=== PATIENT | female | born 1950 | race Caucasian/White ===

== ENCOUNTER 2024-02-26 17:03 | Emergency (ER) | payer MEDICARE ==
[~2024-02-26] VITALS: Ht 162.6 cm; Wt 63.6 kg
[2024-02-26] MEDS ORDERED: NORCO 325 MG-51 TA1 PO (17:52)
[2024-02-26] MEDS ORDERED: CEPHALEXIN500 M1 PO (17:52)
[2024-02-26] MEDS ORDERED: Home HYDROcodone/Acetaminophen 5/325 MG #4 TABS/PACK PO ONE (18:00)
[2024-02-26] MEDS ORDERED: Home Cephalexin 500 MG #2 CAP/PACK PO ONE (18:00)
[2024-02-26 18:04] VITALS: BP 144/91
== END 2024-02-26 18:05 | disposition home or self-care (01) ==
LOC: ED 17:03
DX: S90.212A Contusion of left great toe with damage to nail, initial encounter (principal); W20.8XXA Other cause of strike by thrown, projected or falling object, initial encounter

== ENCOUNTER → 2024-09-13 | Outpatient (CLI) | payer MEDICARE ==
[~2024-09-13] MED LIST: CEPHALEXIN500 M1 PO; NORCO 325 MG-51 TA1 PO
[2024-09-13 12:41] LABS: BASO # 0.04 K/mm3 (0.02-0.10); EOS # 0.17 K/mm3 (0.04-0.40); EOS % 3.2 % (1.0-5.0); HEMATOCRIT 42.1 % (37.0-47.0); HEMOGLOBIN 14.6 g/dL (12.5-16.0); LYMPH# 1.32 K/mm3 (1.50-4.00); MEAN CELL VOLUME 97 fl (78-100); MEAN CORPUSCULAR HEMOGLOBIN 34 pg (27-31); MEAN CORPUSCULAR HGB CONC 35 g/dL (33-37); MEAN PLATELET VOLUME 9.5 fl (7.4-10.4); MONO # 0.38 K/mm3 (0.20-0.80); NEU # 3.41 K/mm3 (1.40-6.50); PLATELET COUNT 219 K/mm3 (130-400); RED BLOOD COUNT 4.35 M/mm3 (4.10-5.30); RED CELL DISTRIBUTION WIDTH 14.6 % (11.5-14.5); WHITE BLOOD COUNT 5.3 K/mm3 (4.8-10.8)
[2024-09-13 13:09] LABS: ALBUMIN 4.3 g/dL (3.4-4.8)
[2024-09-13 13:10] LABS: CALCIUM 9.9 mg/dL (8.3-10.5)
[2024-09-13 13:13] LABS: TOTAL BILIRUBIN 1.1 mg/dL (0.2-1.2)
== END ==
LOC: LAB 12:16
PROVIDERS: Nurse Practitioner
DX: Z01.89 Encounter for other specified special examinations (principal); R53.83 Other fatigue